=== PATIENT | female | born 1970 | race Caucasian/White ===

== ENCOUNTER 2021-07-28 14:04 | Emergency (ER) | payer SELFPAY ==
[2021-07-28] VITALS (8 sets, daily range): BP systolic 80–110; BP diastolic 56–70; PULSE 67–91; RESP 12–16; TEMP 36.5–36.8; O2SAT 95–100
--- NOTE | ~2021-07-28 | XR_ITS ---
XR wrist LT 2V DATE: 07/28/2021 17:43 INDICATION: Postoperative reduction radiograph TECHNIQUE: AP and lateral views COMPARISON: 07/24/2021 prereduction examination FINDINGS: There is a soft tissue wrap around the wrist. There is improvement of dorsal dislocation, with approximately 2 to 3 mm residual dorsal displacement and approximately 18 degrees apex anterior angulation at the comminuted intra-articular fracture of the distal radius. There is some overriding of the fracture fragments. There appears to be a fracture of the ulnar styloid process as well. Radiocarpal alignment appears preserved. IMPRESSION: Diminished dorsal displacement and approximately 18 degrees apex anterior angulation at t he comminuted intra-articular overriding fracture of distal radius Ulnar styloid process fracture Reviewed, dictated and finalized at location A. IMPRESSION: Diminished dorsal displacement and approximately 18 degrees apex an terior angulation at the comminuted intra-articular overriding fracture of dist al radius Ulnar styloid process fracture
--- NOTE | ~2021-07-28 | XR_ITS ---
XR wrist LT min 3V DATE: 07/28/2021 14:38 INDICATION: Fall. Left wrist injury, pain TECHNIQUE: Portable three-view examination COMPARISON: None FINDINGS: There is a comminuted intra-articular overriding fracture of the distal radius with greater than 50% dorsal displacement. The distal ulna appears intact. Radiocarpal alignment is preserved. IMPRESSION: Overriding comminuted intra-articular fracture of distal radius with over 50% dorsal disp lacement Reviewed, dictated and finalized at location A. IMPRESSION: Overriding comminuted intra-articular fracture of distal radius wit h over 50% dorsal displacement
[2021-07-28 14:19] LABS: Glucose Point of Care 121 mg/dl (65-105)
[2021-07-28] MEDS: HYDROcodone/acetaminophen (*CRX) 5-325 MG TABLET 1 TAB PO (14:44)
[2021-07-28] MEDS: SODIUM CHLORIDE 0.9% IV 1,000 ML 999 ML IV CONT (15:55)
[2021-07-28] MEDS: HYDROmorphone HCL INJ (*CRX) 1 MG/ML SYR IV PUSH ×2 (15:56→18:52)
[2021-07-28] MEDS: LORazepam INJ (*CRX) 2 MG/ML VIAL 1 MG IV PUSH (17:22)
[2021-07-28] MEDS: HYDROmorphone HCL INJ (*CRX) 1 MG/ML SYR (17:31)
--- NOTE | 2021-07-28 17:36 | ED.GENADULT ---
HPI - General Adult General Chief complaint: Extremity Injury, Upper Stated complaint: broken wrist Time Seen by Provider: 07/28/21 14:06 Source: patient Mode of arrival: ambulatory Limitations: no limitations History of Present Illness HPI narrative: Patient is a 30-year-old female presenting with chief complaint of deformed left wrist due to falling on outstretched hand while pulling weeds in the yard prior to arrival. Patient reports pain and deformity to the area. Patient denies prior fracture to the wrist. She denies head impact, loss of consciousness or any other areas of discomfort. Related Data Allergies Allergy/AdvReac Type Severity Reaction Status Date / Time No Known Allergies Allergy Mild Verified 07/28/21 14:19 Review of Systems Review of Systems: CONSTITUTIONAL: Denies fever, chills, or sweats. EYES: Denies visual changes, redness, or discharge. ENT: Denies rhinorrhea, congestion, sore throat, or otalgia. CARDIOVASCULAR: Denies chest pain, palpitations, or edema. RESPIRATORY: Denies cough or dyspnea. GASTROINTESTINAL: Denies abdominal pain, nausea, vomiting, or diarrhea. GENITOURINARY: Denies dysuria or hematuria. SKIN: Denies rash or itching. MUSCULOSKELETAL: Reports left wrist pain denies back pain, joint pain, or myalgia. NEUROLOGIC: Denies headache, numbness, dizziness, or weakness. PSYCHIATRIC: Denies anxiety or depression. Exam Narrative: GENERAL: Well-appearing, well-nourished, and in no acute distress. HEAD: Normocephalic, atraumatic. EYES: PERRLA and EOMI. CHEST: Clear to auscultation. No respiratory distress. No wheezes rales or rhonchi HEART: Regular rate and rhythm. No murmur heard. Normal peripheral pulses. EXTREMITIES: Obvious deformity noted to the left wrist. Pulse and cap refill intact. no pain tenderness proximally or distally to the left wrist. Patient has sensation to the fingers distally. SKIN: Warm, dry, no rash. NEURO: No focal deficits. Alert and oriented x3. PSYCH: Normal mood and affect. Course Vital Signs Vital signs: Vital Signs Temperature 98.2 F 07/28/21 14:15 Pulse Rate 70 07/28/21 14:15 Respiratory Rate 16 07/28/21 14:15 Blood Pressure 96/64 L 07/28/21 14:15 Pulse Oximetry 100 07/28/21 14:15 Temperature 98.2 F 07/28/21 16:26 Pulse Rate 71 07/28/21 18:31 Respiratory Rate 16 07/28/21 18:31 Blood Pressure 80/56 L 07/28/21 18:31 Pulse Oximetry 100 07/28/21 18:31 Procedures Orthopedic Joint Reduction Joint #1: Side: left Joint Reduction Location: wrist Analgesia: other (dilaudid and ativan) Pre-Procedure Neuro Vascular Exam: normal Technique used: traction/counter-traction and direct manipulation Post-reduction neuro exam: intact Post-reduction vascular: intact Post Reduction X-Ray Obtained: Yes Post Reduction X-Ray Results: other (improved alignement) Splint Applied: Yes Patient Tolerated Procedure: well Medical Decision Making MDM Narrative Medical decision making narrative: Consult Dr. Gold states that if the fracture can be reduced in the emergency department he will follow up with the patient in his office. He states that if the patient cannot be reduced by ER staff in the emergency department and she should be transferred to another facility. Reduction performed and alignment improved. Patient put in sugartong splint and given follow up instructions and restrictions. Patient given norco for pain for home. Instructed to return if she has any emergent symptoms. Vital Signs Vital Signs: Vital Signs Temperature 98.2 F 07/28/21 14:15 Pulse Rate 70 07/28/21 14:15 Respiratory Rate 16 07/28/21 14:15 Blood Pressure 96/64 L 07/28/21 14:15 Pulse Oximetry 100 07/28/21 14:15 Temperature 98.2 F 07/28/21 16:26 Pulse Rate 71 07/28/21 18:31 Respiratory Rate 16 07/28/21 18:31 Blood Pressure 80/56 L 07/28/21 18:31 Pulse Oximetry 100
== END 2021-07-28 19:36 | disposition home or self-care (01) ==
PROVIDERS: General Practice; Emergency Provider Emergency Medicine; PCP Emergency Medicine
DX: S52.572A Other intraarticular fracture of lower end of left radius, initial encounter for closed fracture (principal); W18.39XA Other fall on same level, initial encounter; Y93.H2 Activity, gardening and landscaping
CPT/HCPCS: 25600; 25605; 73100; 73110; 82948; 96361; 96374; 96375; 96376; 99285; A9270; J1170; J2060; J7030

== ENCOUNTER 2023-06-02 06:10 | Emergency (ER) | payer MEDICAID, SELFPAY ==
[2023-06-02 06:10] VITALS: BP 151/108; RESP 20; O2SAT 95
--- NOTE | 2023-06-02 07:50 | ED.GENADULT ---
HPI - General Adult General Chief complaint: Cardiac Arrest/CPR Stated complaint: cardiac arrest History of Present Illness HPI narrative: Patient a 52-year-old female who presents emergency department with chief complaint of cardiac arrest. Patient has history of lung cancer and called EMS tonight for shortness of breath. Patient originally went to be transferred to a another hospital but the patient underwent cardiac arrest in the back of the ambulance. The EMS service could not verify that the patient was DNR and was told that the patient was full code and they started ACLS protocols. Related Data Home Medications Medication Instructions Recorded Confirmed acetaminophen PO PRN 03/09/23 03/09/23 albuterol 90 mcg/actuation aerosol mcg inhalation 03/09/23 03/09/23 inhaler aspirin 81 mg tablet,delayed 81 mg PO DAILY 03/09/23 03/09/23 release atorvastatin 80 mg tablet (Lipitor) 80 mg PO DAILY 03/09/23 03/09/23 warfarin 2 mg tablet 2 mg PO [id number] 03/09/23 03/09/23 Allergies Allergy/AdvReac Type Severity Reaction Status Date / Time No Known Allergies Allergy Mild Verified 03/09/23 09:49 Review of Systems Review of Systems: A 10 system review of systems was completed on the patient and is negative except for what is stated in the HPI. Nursing and ancillary documentation was reviewed. [facility] Past Medical History Medical History Anticoagulant long-term use Anxiety Aphasia Closed fracture distal radius and ulna Encounter to establish care History of blood clots History of TIA (transient ischemic attack) Low back pain radiating to left leg Major depression Mass of right lung Stroke Wears glasses Social History Social History Smoking packs per day: 1 Smoking cigarettes per day: 20.0 Smoking status: Former smoker Tobacco type: cigarettes Alcohol intake: never Substance use: never Substance use type: does not use Lack of Transportation: No Lack of Food: Never True Current Housing: I Have Housing Concerned About Future Housing: No Difficulty Paying Gas/Electric Bills: No Difficulty Paying for Meds: No Currently Unemployed: No Education: High School Diploma/GED Difficulty w/ Childcare or Family Care: No Occupation/Education: occupation Additional occupation/education comments: Assoc. at [employer] Exam Narrative: GENERAL: Thin cachectic unresponsive HEAD: Normocephalic, atraumatic. EYES: Pupils fixed and dilated. ENT: Nares clear, no rhinorrhea or epistaxis. Mucous membranes moist. NECK: Supple. CHEST: Clear to auscultation. No spontaneous respirations HEART: Absent cardiac activity without compressions. Normal peripheral pulses with Roque device. ABDOMEN: Soft, nontender, nondistended, normal active bowel sounds. EXTREMITIES: Normal range of motion. No edema. SKIN: Warm, dry, no rash. NEURO: Unresponsive PSYCH: Unresponsive Course Vital Signs Vital signs: Vital Signs Respiratory Rate 20 06/02/23 06:10 Blood Pressure 151/108 H 06/02/23 06:10 Pulse Oximetry 95 06/02/23 06:10 Respiratory Rate 20 06/02/23 06:10 Blood Pressure 151/108 H 06/02/23 06:10 Pulse Oximetry 95 06/02/23 06:10 Procedures Central Line Placement Right Femoral: Central Line Date: 06/02/23 Central Line Time: 07:52 Performed Emergently - Given emergent patient condition, temporal constraints may have precluded informed consent.: Yes Patient Placed on Monitor/Pulse Ox: Yes Max. Sterile Barrier Technique: hand hygiene Central Line Prep: 2% chlorhexidine scrub and sterile drapes applied Technique: blake Local Anesthetic: none Central Line Lumen Inserted: triple Post Procedure: sutured in place, good blood return, all ports aspirated, flushed, capped and sterile dressing a
== END 2023-06-02 10:00 | disposition expired ==
PROVIDERS: Emergency Provider Emergency Medicine; PCP Nurse Practitioner Family
DX: I46.9 Cardiac arrest, cause unspecified (principal); Z85.118 Personal history of other malignant neoplasm of bronchus and lung; F41.9 Anxiety disorder, unspecified; F32.9 Major depressive disorder, single episode, unspecified; Z86.73 Personal history of transient ischemic attack (TIA), and cerebral infarction without residual deficits; Z87.891 Personal history of nicotine dependence; Z79.01 Long term (current) use of anticoagulants; Z79.82 Long term (current) use of aspirin
CPT/HCPCS: 31500; 36556; 92950; 99285; C1751; J0171; J0461